=== PATIENT | male | born 1995 | race Caucasian/White ===

== ENCOUNTER 2017-01-07 20:59 | Emergency (ER) | payer OTHER, MEDICARE ==
[~2017-01-07] VITALS: Ht 180.3 cm; Wt 90.7 kg
[~2017-01-07 20:59] MED LIST: CIPR-225 PO; LACT1CAP8 PO; MELA1TAB8 PO; METR500T PO; PRD20T PO
[2017-01-07] MEDS ORDERED: FLUO10CA19 PO (21:12)
--- NOTE | 2017-01-07 21:21 | ED GI ---
General Chief Complaint: Abdominal/GI Problems Stated Complaint: VOMITING BLOOD Nursing Triage Note: C/O VOMITTING BLOOD STREAKED EMISIS X1 [employer]. DENIES OTHER COMPLAINTS Sepsis Screen: No Definite Risk Source of Information: Patient, RN Notes Reviewed Exam Limitations: No Limitations History of Present Illness Time Seen By Provider: 21:21 Initial Comments As above and below. Does admit to drinking a lot of ETOH and smoking Saturday night which is unusual for him. Admits he kind of freaked out when he saw the blood. Denies any pain. Timing/Duration: 1-3 Hours, Gone Now (???) Location: Other (denies pain) Radiation: No Radiation Activities at Onset: Rest Modifying Factors: Improves With Other (see above) Associated Symptoms: Nausea/Vomiting (x 1 episode) Allergies and Home Medications Allergies Coded Allergies: No Known Drug Allergies (Unverified , 05/07/16) Home Medications Famotidine 20 Mg Tablet, 20 MG PO BID, #30 Ref 0 Prescribed by: ISAAK CHUNG on 01/07/172218 Fluoxetine HCl 10 Mg Capsule, 1 CAP PO UD, #30 (Reported) Ondansetron HCl 4 Mg Tab, 4 MG PO Q6H PRN for NAUSEA/VOMITING, #10 Ref 0 Prescribed by: ISAAK CHUNG on 01/07/172218 Review of Systems Gastrointestinal: See HPI, Vomiting (blood streaked x 1) All Other Systems Reviewed Negative Unless Noted: Yes (Negative excepted noted.) Past Qrnlzbw-Zoezxs-Tmerqn Hx Patient Social History Alcohol Use: Occasionally Uses Recreational Drug Use: Yes Drug of Choice: CANNIBUS Smoking Status: Current Someday Smoker Type Used: Cigarettes Recent Foreign Travel: No Contact w/Someone Who Travel: No Recent Infectious Disease Expo: No Recent Hopitalizations: No Immunizations Up To Date Tetanus Booster (TDap): Less than 5yrs PED Vaccines UTD: Yes Seasonal Allergies Seasonal Allergies: Yes Surgeries Surgeries: Adenoidectomy, Ear Surgery, Tonsillectomy Respiratory Hx Respiratory Disorders: No Cardiovascular Hx Cardiac Disorders: No Neurological Hx Neurological Disorders: No Reproductive System Hx Reproductive Disorders: No Sexually Transmitted Disease: No HIV/AIDS: No Genitourinary Hx Genitourinary Disorders: No Gastrointestinal Hx Gastrointestinal Disorders: Yes Gastrointestinal Disorders: Colitis Musculoskeletal Hx Musculoskeletal Disorders: No Endocrine Hx Endocrine Disorders: No HEENT HX ENT Disorders: No Cancer Hx Cancer: No Psychosocial Hx Psychiatric Problems: No (Asperger's) Behavioral Health Disorders: Anxiety Integumentary HX Skin/Integumentary Disorder: No Blood Transfusions Hx Blood Disorders: No Physical Exam Vital Signs VS - Last 72 Hours, by Label 01/07/17 01/07/17 21:13 22:28 Temp 98.7 97.8 Pulse 100 96 Resp 18 16 B/P (MAP) 147/90 Pulse Ox 96 99 O2 Delivery Room Air Capillary Refill : Less Than 3 Seconds General Appearance: WD/WN, no apparent distress HEENT: normal ENT inspection Neck: normal inspection Respiratory: no respiratory distress Cardiovascular: regular rate, rhythm Gastrointestinal: non tender Rectal: deferred Neurologic/Psychiatric: alert, oriented x 3 Skin: warm/dry Progress/Results/Core Measures Results/Orders Lab Results Laboratory Tests Test 01/07/17 21:35 Range/Units White Blood Count 15.4 H 4.3-11.0 10^3/uL Red Blood Count 4.83 4.35-5.85 10^6/uL Hemoglobin 14.0 13.3-17.7 G/DL Hematocrit 40 40-54 % Mean Corpuscular Volume 83 80-99 FL Mean Corpuscular Hemoglobin 29 25-34 PG Mean Corpuscular Hemoglobin Concent 35 32-36 G/DL Red Cell Distribution Width 13.1 10.0-14.5 % Platelet Count 281 130-400 10^3/uL Mean Platelet Volume 9.6 7.4-10.4 FL Neutrophils (%) (Auto) 73 42-75 % Lymphocytes (%) (Auto) 20 12-44 % Monocytes (%) (Auto) 5 0-12 % Eosinophils (%) (Auto) 1 0-10 % Basophils (%) (Auto) 0 0-10 % Neutrophils # (Auto) 11.3 H 1.8-7.8 X 10^3 Lymphocytes # (Auto) 3.1 1.0-4.0 X 10^3 Monocytes # (Auto) 0.8 0.0-1.0 X 10^3 Eosinophils # (Auto) 0.1 0.0-0.3 10^3/uL Basophils # (Auto) 0.0 0.0-0.1 10^3/uL Neutrophils % (Manual) 72 % Lymphocytes % (Manual) 19 % Monocytes % (Manual) 8 % Eosinophils % (Manual) 0 % Basophils % (Manual) 0 % Metamyelocytes % 1 % Band Neutrophils 0 % Blood Morphology Comment NORMAL Sodium Level 143 135-145 MMOL/L Potassium Level 3.8 3.6-5.0 MMOL/L Chloride Level 107 98-107 MMOL/L Carbon Dioxide Level 25 21-32 MMOL/L Anion Gap 11 5-14 MMOL/L Blood Urea Nitrogen 13 7-18 MG/DL Creatinine 1.05 0.60-1.30 MG/DL Estimat Glomerular Filtration Rate > 60 BUN/Creatinine Ratio 12 Glucose Level 77 70-105 MG/DL Calcium Level 9.3 8.5-10.1 MG/DL Total Bilirubin 0.6 0.1-1.0 MG/DL Aspartate Amino Transf (AST/SGOT) 61 H 5-34 U/L Alanine Aminotransferase (ALT/SGPT) 37 0-55 U/L Alkaline Phosphatase 62 40-136 U/L Total Protein 7.1 6.4-8.2 G/DL Albumin 4.3 3.2-4.5 G/DL Lipase 28 8-78 U/L My Orders Orders - ISAAK CHUNG DO Cbc With Automated Diff (01/07/17 21:21) Comprehensive Metabolic Panel (01/07/17 21:21) Lipase (01/07/17 21:21) Ondansetron Oral Dissolve Tab (Zofran (01/07/17 21:30) Famotidine Tablet (Pepcid Tablet) (01/07/17 21:30) Manual Differential (01/07/17 21:35) Medications Given in ED Vital Signs/I&O Vital Sign - Last 12Hours 01/07/17 01/07/17 21:13 22:28 Temp 98.7 97.8 Pulse 100 96 Resp 18 16 B/P (MAP) 147/90 Pulse Ox 96 99 O2 Delivery Room Air Blood Pressure Mean: 109 Departure Impression Impression: Primary Impression: Hematemesis Additional Impression: Gastritis Disposition: 01 HOME, SELF-CARE Condition: Improved Departure-Patient Inst. Decision time for Depature: 22:18 Referrals: [facility] (PCP/Family) Primary Care Physician Patient Instructions: Gastritis (DC) Scripts Ondansetron HCl (Zofran) 4 Mg Tab 4 MG PO Q6H Y for NAUSEA/VOMITING, #10 TAB 0 Refills Prov: ISAAK CHUNG DO 01/07/17 Famotidine (Pepcid) 20 Mg Tablet 20 MG PO BID, #30 TAB 0 Refills Prov: ISAAK CHUNG DO 01/07/17 ISAAK CHUNG DO Jan 07, 2017 21:21
[2017-01-07] MEDS ORDERED: ONDANSETRON 4 MG (ZOFRAN) ORAL DISSOLVE TAB PO ONE (21:30)
[2017-01-07] MEDS ORDERED: FAMOTIDINE 20 MG (PEPCID) TABLET PO ONE (21:30)
[2017-01-07 21:41] LABS: BASOPHILS % (AUTO) 0 % (0-10); EOSINOPHILS # (AUTO) 0.1 10^3/uL (0.0-0.3); EOSINOPHILS % (AUTO) 1 % (0-10); LYMPHOCYTES # (AUTO) 3.1 X 10^3 (1.0-4.0); LYMPHOCYTES % (AUTO) 20 % (12-44); MEAN CORPUSCULAR HEMOGLOBIN 29 PG (25-34); MEAN CORPUSCULAR HGB CONC 35 G/DL (32-36); MEAN CORPUSCULAR VOLUME 83 FL (80-99); MEAN PLATELET VOLUME 9.6 FL (7.4-10.4); MONOCYTES # (AUTO) 0.8 X 10^3 (0.0-1.0); MONOCYTES % (AUTO) 5 % (0-12); NEUTROPHILS # (AUTO) 11.3 X 10^3 (1.8-7.8); NEUTROPHILS % (AUTO) 73 % (42-75); PLATELET COUNT 281 10^3/uL (130-400); RED BLOOD COUNT 4.83 10^6/uL (4.35-5.85); RED CELL DISTRIBUTION WIDTH 13.1 % (10.0-14.5); WHITE BLOOD COUNT 15.4 10^3/uL (4.3-11.0)
[2017-01-07 22:01] LABS: BAND NEUTROPHILS 0 %; BASOPHILS % (MANUAL) 0 %; EOSINOPHILS % (MANUAL) 0 %; LYMPHOCYTES % (MANUAL) 19 %; METAMYELOCYTES % 1 %; NEUTROPHILS % (MANUAL) 72 %
[2017-01-07 22:05] LABS: ALANINE AMINOTRANSFERASE 37 U/L (0-55); ALBUMIN 4.3 G/DL (3.2-4.5); ANION GAP 11 MMOL/L (5-14); ASPARTATE AMINO TRANSFERASE 61 U/L (5-34); BILIRUBIN,TOTAL 0.6 MG/DL (0.1-1.0); BLOOD UREA NITROGEN 13 MG/DL (7-18); BUN/CREATININE RATIO 12; CALCIUM 9.3 MG/DL (8.5-10.1); CARBON DIOXIDE 25 MMOL/L (21-32); CHLORIDE 107 MMOL/L (98-107); CREATININE SERUM 1.05 MG/DL (0.60-1.30); GFR ESTIMATED > 60; GLUCOSE 77 MG/DL (70-105); LIPASE 28 U/L (8-78); POTASSIUM 3.8 MMOL/L (3.6-5.0); SODIUM 143 MMOL/L (135-145); TOTAL PROTEIN 7.1 G/DL (6.4-8.2)
[2017-01-07] MEDS ORDERED: ONDN4T PO (22:19)
[2017-01-07] MEDS ORDERED: FAMO-119 PO (22:19)
[2017-01-07 22:28] VITALS: BP 124/88
== END 2017-01-07 22:28 | disposition home or self-care (01) ==
LOC: EDUNIT# 20:59 → ER 21:01
DX: K92.0 Hematemesis (principal); K29.70 Gastritis, unspecified, without bleeding; F17.210 Nicotine dependence, cigarettes, uncomplicated
CPT/HCPCS: 36415; 80053; 83690; 85007; 85027; 99283